=== PATIENT | male | born 1975 | race American Indian/Alaskan Native ===

== ENCOUNTER 2019-01-24 11:09 | Inpatient (IN) | payer OTHER ==
--- NOTE | 2019-01-24 11:33 | Emergency Department Report ---
Blank Doc - Documentation Documentation: 43 yo male with a hx of HTN non compliant with meds presents cc of CP left sided non radiating also complains of left thumb pain from over use, no injury basic labs, ekg, cxr
[2019-01-24] MEDS ORDERED: NITRO-BID 2% TP ONE (11:37)
[2019-01-24] MEDS ORDERED: ASPIRIN PO ONE (11:37)
[2019-01-24] MEDS ORDERED: NORMODYNE IV ONE (11:38)
--- NOTE | 2019-01-24 11:51 | Emergency Department Report ---
ED Chest Pain HPI - General Chief Complaint: Chest Pain Stated Complaint: BILATERAL THUMB PAIN/CHEST Time Seen by Provider: 01/24/19 11:19 Source: patient Mode of arrival: Ambulatory Limitations: No Limitations - History of Present Illness Initial Comments: Patient is a 43-year-old -[place] male who is presenting with chest pain. Patient states that the last 2-3 weeks she's had tightness in his chest has been constant. She is slightly worse with exertion. Patient also states she has some mild shortness of breath as well. He denies any cough cold congestion and fevers chills or sore throat. Patient admits to being noncompliant with antihypertensive meds and has not taken medicine several months. Patient denies any diaphoresis or nausea vomiting. Severity scale (0 -10): 8 - Related Data Home Medications Medication Instructions Recorded Confirmed Last Taken Lisinopril [Zestril TAB] 11/13/13 11/13/13 Unknown Pravastatin Sodium [Pravastatin] 11/13/13 11/13/13 Unknown Previous Rx's Medication Instructions Recorded Last Taken Type cephALEXin [Keflex] 500 mg PO TID #21 capsule 11/13/13 Unknown Rx HYDROcodone/ACETAMINOPHEN [[place] 1 each PO Q6HR PRN #20 tablet 09/06/14 Unknown Rx 5/325 Tablet] Ibuprofen [Motrin] 800 mg PO TID PRN #50 tablet 09/06/14 Unknown Rx Allergies Allergy/AdvReac Type Severity Reaction Status Date / Time No Known Allergies Allergy Verified 09/06/14 13:25 Heart Score - HEART Score History: Moderately suspicious EKG: Normal Age: < 45 Risk factors: 1-2 risk factors Troponin: < normal limit HEART Score: 2 ED Review of Systems ROS: Stated complaint: BILATERAL THUMB PAIN/CHEST Other details as noted in HPI Comment: All other systems reviewed and negative ED Past Medical Hx - Past Medical History Previous Medical History?: Yes Hx Hypertension: Yes Additional medical history: cholesterol - Surgical History Past Surgical History?: Yes Additional Surgical History: left leg surgery - Social History Smoking Status: Current Every Day Smoker Substance Use Type: Marijuana - Medications Home Medications: Home Medications Medication Instructions Recorded Confirmed Last Taken Type Lisinopril [Zestril TAB] 11/13/13 11/13/13 Unknown History Pravastatin Sodium [Pravastatin] 01/18/14 01/18/14 Unknown History cephALEXin [Keflex] 500 mg PO TID #21 capsule 11/13/13 Unknown Rx HYDROcodone/ACETAMINOPHEN [[place] 1 each PO Q6HR PRN #20 tablet 09/06/14 Unknown Rx 5/325 Tablet] Ibuprofen [Motrin] 800 mg PO TID PRN #50 tablet 09/06/14 Unknown Rx ED Physical Exam - General Limitations: No Limitations General appearance: alert, in no apparent distress - Head Head exam: Present: atraumatic, normocephalic - Eye Eye exam: Present: normal appearance, PERRL, EOMI - ENT ENT exam: Present: mucous membranes moist - Neck Neck exam: Present: normal inspection - Respiratory Respiratory exam: Present: normal lung sounds bilaterally. Absent: respiratory distress, wheezes, rales, rhonchi - Cardiovascular Cardiovascular Exam: Present: regular rate, normal rhythm. Absent: systolic murmur, diastolic murmur, rubs, gallop - GI/Abdominal GI/Abdominal exam: Present: soft, normal bowel sounds. Absent: distended, tenderness, guarding, rebound - Rectal Rectal exam: Present: deferred - Extremities Exam Extremities exam: Present: normal inspection - Back Exam Back exam: Present: normal inspection - Neurological Exam Neurological exam: Present: alert, oriented X3 - Psychiatric Psychiatric exam: Present: normal affect, normal mood - Skin Skin exam: Present: warm, dry, intact, normal color. Absent: rash ED Course Vital Signs 01/24/19 01/24/19 01/24/19 11:21 12:33 12:34 Temperature 97.8 F Pulse Rate 79 71 71 Respiratory 16 Rate Blood Pressure 223/109 192/113 192/113 Blood Pressure [Left] O2 Sat by Pulse 99 Oximetry 01/24/19 01/24/19 13:16 13:18 Temperature Pulse Rate 68 Respiratory 16 16 Rate Blood Pressure Blood Pressure 168/106 [Left] O2 Sat by Pulse 99 Oximetry LUH score - Luh Score Age > 65: (0) No Aspirin use within the Past 7 Days: (0) No 3 or more CAD Risk Factors: (0) No 2 or more Angina events in past 24 hrs: (1) Yes Known CAD with more than 50% Stenosis: (0) No Elevated Cardiac Markers: (0) No ST Deviation Greater than 0.5mm: (0) No LUH Score: 1 ED Medical Decision Making - Lab Data Result diagrams: 01/24/19 12:27 01/24/19 12:27 Lab Results 01/24/19 01/24/19 01/24/19 Range/Units 12:27 12:27 12:27 WBC 7.6 (4.5-11.0) K/mm3 RBC 4.75 (3.65-5.03) M/mm3 Hgb 14.4 (11.8-15.2) gm/dl Hct 42.7 (35.5-45.6) % MCV 90 (84-94) fl MCH 30 (28-32) pg MCHC 34 (32-34) % RDW 14.6 (13.2-15.2) % Plt Count 218 (140-440) K/mm3 Lymph % (Auto) 37.6 H (13.4-35.0) % [place] % (Auto) 6.0 (0.0-7.3) % Eos % (Auto) 0.8 (0.0-4.3) % Baso % (Auto) 0.3 (0.0-1.8) % Lymph # 2.9 (1.2-5.4) K/mm3 [place] # 0.5 (0.0-0.8) K/mm3 Eos # 0.1 (0.0-0.4) K/mm3 Baso # 0.0 (0.0-0.1) K/mm3 Seg Neutrophils % 55.3 (40.0-70.0) % Seg Neutrophils # 4.2 (1.8-7.7) K/mm3 PT (12.2-14.9) Sec. INR (0.87-1.13) APTT (24.2-36.6) Sec. Sodium 141 (137-145) mmol/L Potassium 4.1 (3.6-5.0) mmol/L Chloride 104.8 (98-107) mmol/L Carbon Dioxide 26 (22-30) mmol/L Anion Gap 14 mmol/L BUN 12 (9-20) mg/dL Creatinine 1.1 (0.8-1.5) mg/dL Estimated GFR > 60 ml/min BUN/Creatinine Ratio 11 % Glucose 101 H (75-100) mg/dL Calcium 9.2 (8.4-10.2) mg/dL Total Bilirubin 0.20 (0.1-1.2) mg/dL AST 17 (5-40) units/L ALT 25 (7-56) units/L Alkaline Phosphatase 52 (35-129) units/L Troponin T < 0.010 (0.00-0.029) ng/mL Total Protein 7.5 (6.3-8.2) g/dL Albumin 4.1 (3.9-5) g/dL Albumin/Globulin Ratio 1.2 % 01/24/19 Range/Units 12:27 WBC (4.5-11.0) K/mm3 RBC (3.65-5.03) M/mm3 Hgb (11.8-15.2) gm/dl Hct (35.5-45.6) % MCV (84-94) fl MCH (28-32) pg MCHC (32-34) % RDW (13.2-15.2) % Plt Count (140-440) K/mm3 Lymph % (Auto) (13.4-35.0) % [place] % (Auto) (0.0-7.3) % Eos % (Auto) (0.0-4.3) % Baso % (Auto) (0.0-1.8) % Lymph # (1.2-5.4) K/mm3 [place] # (0.0-0.8) K/mm3 Eos # (0.0-0.4) K/mm3 Baso # (0.0-0.1) K/mm3 Seg Neutrophils % (40.0-70.0) % Seg Neutrophils # (1.8-7.7) K/mm3 PT 11.7 L (12.2-14.9) Sec. INR 0.81 L (0.87-1.13) APTT 25.2 (24.2-36.6) Sec. Sodium (137-145) mmol/L Potassium (3.6-5.0) mmol/L Chloride (98-107) mmol/L Carbon Dioxide (22-30) mmol/L Anion Gap mmol/L BUN (9-20) mg/dL Creatinine (0.8-1.5) mg/dL Estimated GFR ml/min BUN/Creatinine Ratio % Glucose (75-100) mg/dL Calcium (8.4-10.2) mg/dL Total Bilirubin (0.1-1.2) mg/dL AST (5-40) units/L ALT (7-56) units/L Alkaline Phosphatase (35-129) units/L Troponin T (0.00-0.029) ng/mL Total Protein (6.3-8.2) g/dL Albumin (3.9-5) g/dL Albumin/Globulin Ratio % - EKG Data -: EKG Interpreted by Me - EKG Data 01/24/19 11:50 EKG shows sinus rhythm with a rate of 81, axis and intervals normal. There is no ST segment elevations or depressions present. Time of interpretation is 11:30 - Radiology Data interpreted by me: CXR WNL - Medical Decision Making Patient's blood pressure did respond to labetalol and nitro paste. Patient states he still continued to have some mild chest discomfort that he's states it is tightness in the chest. Patient does not appear to be in any distress at this time. Because of the elevated blood pressure and a continuous chest pain despite nitroglycerin and aspirin. Patient is to be admitted to the hospital for further evaluation. Critical Care Time: Yes (30) Critical care attestation.: If time is entered above; I have spent that time in minutes in the direct care of this critically ill patient, excluding procedure time. ED Disposition Clinical Impression: Hypertensive urgency, malignant Chest pain Qualifiers: Chest pain type: unspecified Qualified Code(s): R07.9 - Chest pain, unspecified Disposition: 09 OP ADMIT IP TO THIS HOSP Is pt being admited?: Yes Does the pt Need Aspirin: No Condition: Stable Instructions: Chest Pain (ED) Referrals: PRIMARY CARE, [Primary Care Provider] - 3-5 Days Time of Disposition: 13:40
[2019-01-24 12:50] LABS: Basophils % (Auto) 0.3 % (0.0-1.8); Eosinophils # (Auto) 0.1 K/mm3 (0.0-0.4); Eosinophils % (Auto) 0.8 % (0.0-4.3); Hematocrit 42.7 % (35.5-45.6); Hemoglobin 14.4 gm/dl (11.8-15.2); Lymphocytes # (Auto) 2.9 K/mm3 (1.2-5.4); Lymphocytes % (Auto) 37.6 % (13.4-35.0); Mean Corpuscular HGB Conc 34 % (32-34); Mean Corpuscular Volume 90 fl (84-94); Monocytes # (Auto) 0.5 K/mm3 (0.0-0.8); Platelet Count 218 K/mm3 (140-440); Red Blood Count 4.75 M/mm3 (3.65-5.03); Red Cell Distribution Width 14.6 % (13.2-15.2)
[2019-01-24 13:01] LABS: INR 0.81 (0.87-1.13)
[2019-01-24 13:02] LABS: Partial Thromboplastin Time 25.2 Sec. (24.2-36.6)
[2019-01-24 13:13] LABS: Alanine Aminotransferase 25 units/L (7-56); Albumin 4.1 g/dL (3.9-5); BUN/Creatinine Ratio 11; Blood Urea Nitrogen 12 mg/dL (9-20); Calcium 9.2 mg/dL (8.4-10.2); Hemolysis Index 3
--- NOTE | 2019-01-24 13:47 | XRay Report ---
PROCEDURE: XR CHEST ROUTINE 2V TECHNIQUE: Frontal and lateral views of the chest HISTORY: Chest Pain COMPARISONS: None. FINDINGS: The cardiomediastinal silhouette is normal in appearance. The lungs are clear without focal consolidation. No pleural effusion or pneumothorax. No acute bony or soft tissue abnormality. IMPRESSION: No acute cardiopulmonary disease. This document is electronically signed by Amber Dobbins MD., January 24 2019 01:44:53 PM ET
[2019-01-24] MEDS ORDERED: IBUPROFEN PO ONE (14:20)
[2019-01-24] MEDS ORDERED: IBUPROFEN PO PRN (20:20)
[2019-01-25] MEDS ORDERED: SODIUM CHLORIDE FLUSH SYRINGE 10 ML IV PRN (03:02)
[2019-01-25] MEDS ORDERED: ZOFRAN IV PRN (03:02)
[2019-01-25] MEDS ORDERED: TYLENOL PO PRN (03:02)
[2019-01-25] MEDS ORDERED: NORCO 5/325 PO PRN (03:02)
[2019-01-25] MEDS: MORPHINE IV PRN ×2 (05:55→12:08)
--- NOTE | 2019-01-25 06:29 | History and Physical Report ---
History of Present Illness Date of examination: 01/25/19 Date of admission: 01/24/19 13:41 Chief complaint: Chest pain for 2 weeks. History of present illness: 43-year-old -[place] male with pmh of HTN and HLD comes to ED for chest pain of 2 weeks duration.Intermittent in nature.Dull aching in character.5/10 in intensity.No diaphoresis.No radiation.No palpitations.Exacerbated by exertion.Relieved nbu rest.No recent travel.No fever or chills. Past Medical History Previous Medical History Hyppertension Hyperlipidemia Surgical History Past Surgical History?: Yes Additional Surgical History: left leg surgery Social History Smoking Status: Current Every Day Smoker Substance Use Type: Marijuana Family History Htn Medications Home Medications: Home Medications Medication Instructions Recorded Confirmed Last Taken Type Lisinopril [Zestril TAB] 11/13/13 11/13/13 Unknown History Pravastatin Sodium [Pravastatin] 11/13/13 11/13/13 Unknown History cephALEXin [Keflex] 500 mg PO TID #21 capsule 11/13/13 Unknown Rx HYDROcodone/ACETAMINOPHEN [[place] 1 each PO Q6HR PRN #20 tablet 09/06/14 Unknown Rx 5/325 Tablet] Ibuprofen [Motrin] 800 mg PO TID PRN #50 tablet 09/06/14 Unknown Rx Review of Systems ROS: Stated complaint: BILATERAL THUMB PAIN/CHEST Other details as noted in HPI Comment: All other systems reviewed and negative Medications and Allergies Allergies Allergy/AdvReac Type Severity Reaction Status Date / Time No Known Allergies Allergy Verified 09/06/14 13:25 Home Medications Medication Instructions Recorded Confirmed Last Taken Type Lisinopril [Zestril TAB] 5 mg PO DAILY 11/13/13 01/24/19 Unknown History Pravastatin Sodium [Pravastatin] 40 mg PO DAILY 11/13/13 01/24/19 Unknown History cephALEXin [Keflex] 500 mg PO TID #21 capsule 11/13/13 01/24/19 Unknown Rx HYDROcodone/ACETAMINOPHEN [[place] 1 each PO Q6HR PRN #20 tablet 09/06/14 01/24/19 Unknown Rx 5/325 Tablet] Ibuprofen [Motrin] 800 mg PO TID PRN #50 tablet 09/06/14 01/24/19 Unknown Rx Active Meds: Active Medications Acetaminophen (Tylenol) 650 mg PO Q4H PRN PRN Reason: Pain MILD(1-3)/Fever >100.5/GARCIA Acetaminophen/Hydrocodone Bitart ([place] 5/325) 2 each PO Q6H PRN PRN Reason: Pain, Moderate (4-6) Amlodipine Besylate (Norvasc) 10 mg PO QDAY YUNG Famotidine (Pepcid) 10 mg PO BID YUNG Ibuprofen (Motrin) 400 mg PO Q6H PRN PRN Reason: Pain, Mild (1-3) Last Admin: 01/24/19 20:45 Dose: 400 mg Documented by: Morphine Sulfate (Morphine) 2 mg IV Q4H PRN PRN Reason: Pain, Moderate (4-6) Last Admin: 01/25/19 05:55 Dose: 2 mg Documented by: Ondansetron HCl (Zofran) 4 mg IV Q8H PRN PRN Reason: Nausea And Vomiting Sodium Chloride (Sodium Chloride Flush Syringe 10 Ml) 10 ml IV BID YUNG Sodium Chloride (Sodium Chloride Flush Syringe 10 Ml) 10 ml IV PRN PRN PRN Reason: LINE FLUSH Exam - Constitutional Vitals: Temp Pulse Resp BP Pulse Ox 98.5 F 69 24 159/96 93 01/25/19 05:22 01/25/19 05:22 01/25/19 05:22 01/25/19 05:22 01/25/19 05:22 General appearance: Present: no acute distress, well-nourished - EENT Eyes: Present: PERRL ENT: hearing intact, clear oral mucosa - Neck Neck: Present: supple, normal ROM - Respiratory Respiratory effort: normal Respiratory: bilateral: CTA - Cardiovascular Heart rate: 78 Rhythm: regular Heart Sounds: Present: S1 & S2. Absent: rub, click - Extremities Extremities: no ischemia, pulses intact, pulses symmetrical, No edema Peripheral Pulses: within normal limits - Abdominal General gastrointestinal: Present: soft, non-tender, non-distended, normal bowel sounds Male genitourinary: Present: normal - Rectal Rectal Exam: deferred - Integumentary Integumentary: Present: clear, warm, dry - Musculoskeletal Musculoskeletal: gait normal, strength equal bilaterally - Psychiatric Psychiatric: appropriate mood/affect, intact judgment & insight - Neurologic Neurologic: CNII-XII intact, moves all extremities - Allied Health Allied health notes reviewed: nursing, case management Results - Labs CBC & Chem 7: 01/24/19 12:27 01/24/19 12:27 Labs: Laboratory Last Values WBC 7.6 K/mm3 (4.5-11.0) 01/24/19 12: RBC 4.75 M/mm3 (3.65-5.03) 01/24/19 12:27 Hgb 14.4 gm/dl (11.8-15.2) 01/24/19 12:27 Hct 42.7 % (35.5-45.6) 01/24/19 12:27 MCV 90 fl (84-94) 01/24/19 12: MCH 30 pg (28-32) 01/24/19 12: MCHC 34 % (32-34) 01/24/19 12: RDW 14.6 % (13.2-15.2) 01/24/19 12: Plt Count 218 K/mm3 (140-440) 01/24/19 12: Lymph % (Auto) 37.6 % (13.4-35.0) H 01/24/19 12:27 [place] % (Auto) 6.0 % (0.0-7.3) 01/24/19 12: Eos % (Auto) 0.8 % (0.0-4.3) 01/24/19 12: Baso % (Auto) 0.3 % (0.0-1.8) 01/24/19 12: Lymph # 2.9 K/mm3 (1.2-5.4) 01/24/19 12: [place] # 0.5 K/mm3 (0.0-0.8) 01/24/19 12:27 Eos # 0.1 K/mm3 (0.0-0.4) 01/24/19 12: Baso # 0.0 K/mm3 (0.0-0.1) 01/24/19 12:27 Seg Neutrophils % 55.3 % (40.0-70.0) 01/24/19 12: Seg Neutrophils # 4.2 K/mm3 (1.8-7.7) 01/24/19 12:27 PT 11.7 Sec. (12.2-14.9) L 01/24/19 12:27 INR 0.81 (0.87-1.13) L 01/24/19 12:27 APTT 25.2 Sec. (24.2-36.6) 01/24/19 12:27 Sodium 141 mmol/L (137-145) 01/24/19 12:27 Potassium 4.1 mmol/L (3.6-5.0) 01/24/19 12:27 Chloride 104.8 mmol/L (98-107) 01/24/19 12:27 Carbon Dioxide 26 mmol/L (22-30) 01/24/19 12:27 Anion Gap 14 mmol/L 01/24/19 12:27 BUN 12 mg/dL (9-20) 01/24/19 12:27 Creatinine 1.1 mg/dL (0.8-1.5) 01/24/19 12:27 Estimated GFR > 60 ml/min 01/24/19 12:27 BUN/Creatinine Ratio 11 % 01/24/19 12:27 Glucose 101 mg/dL (75-100) H 01/24/19 12:27 Calcium 9.2 mg/dL (8.4-10.2) 01/24/19 12:27 Total Bilirubin 0.20 mg/dL (0.1-1.2) 01/24/19 12:27 AST 17 units/L (5-40) 01/24/19 12:27 ALT 25 units/L (7-56) 01/24/19 12:27 Alkaline Phosphatase 52 units/L (35-129) 01/24/19 12:27 Troponin T < 0.010 ng/mL (0.00-0.029) 01/24/19 16:16 Total Protein 7.5 g/dL (6.3-8.2) 01/24/19 12:27 Albumin 4.1 g/dL (3.9-5) 01/24/19 12:27 Albumin/Globulin Ratio 1.2 % 01/24/19 12:27 - Imaging and Cardiology EKG: report reviewed Chest x-ray: report reviewed (NAF) Imaging and Cardiology: EKG NSR 80/min No acute ST T wave changes Assessment and Plan Advance Directives: Yes (Full code) VTE prophylaxis?: Chemical Plan of care discussed with patient/family: Yes - Patient Problems (1) Chest pain Current Visit: Yes Status: Acute Qualifiers: Chest pain type: unspecified Qualified Code(s): R07.9 - Chest pain, unspecified Plan to address problem: Chest pain protocol Serial Toponins Lexiscan in AM Costochondritis and GERD in Differential diagnosis (2) Hypertensive emergency Current Visit: Yes Status: Acute Plan to address problem: Initiated on Losartan and Amlodipine Noncompliant Counselled IV Hydraazine PRN (3) Arthritis Current Visit: No Status: Chronic Plan to address problem: NSAIDS prn (4) HLD (hyperlipidemia) Current Visit: Yes Status: Chronic Qualifiers: Hyperlipidemia type: mixed hyperlipidemia Qualified Code(s): E78.2 - Mixed hyperlipidemia Plan to address problem: Statins ordered (5) DVT prophylaxis Current Visit: Yes Status: Acute Plan to address problem: On Lovenox and GI prophylaxis
[2019-01-25] MEDS ORDERED: COZAAR PO SCH (06:37)
[2019-01-25] MEDS ORDERED: HABITROL TD SCH (08:00)
[2019-01-25] MEDS ORDERED: NORVASC PO SCH (10:00)
[2019-01-25] MEDS ORDERED: SODIUM CHLORIDE FLUSH SYRINGE 10 ML IV SCH (10:00)
[2019-01-25] MEDS ORDERED: PEPCID PO SCH (10:00)
[2019-01-25] MEDS ORDERED: LEXISCAN IV ONE ×2 (10:06→10:07)
--- NOTE | 2019-01-25 13:51 | Discharge Summary ---
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 His main complaint is bilateral thumb pains and wants cortisone injection, which had before at [facility]. -Chest pains, atypical, msk in nature -Tobacco dependency: counselor/art therapist on stopping -Bilateral thumb pains with severe callous bilateral palms, suspect Carpal tunnel: Referral to outpt Ortho. -Hypertension: counselor/art therapist on compliance -Dyslipidemia: lifestyle modifications stress Disposition: TO HOME OR SELFCARE Time spent for discharge: 32 minutes Core Measure Documentation - Palliative Care Palliative Care/ Comfort Measures: Not Applicable - Core Measures Any of the following diagnoses?: none - VTE Discharge Requirements Deep Vein Thrombosis/Pulmonary Embolism Present on Admission: No Has pt received <5 days of overlap therapy or INR<2.0: No Anticoagulant overlap therapy prescribed at discharge: No Contraindication No Overlap Therapy order at DC: Not Indicated Exam - Physical Exam Narrative exam: Gen: WDWN, NAD, Awake, Alert, Orientated HEENT: NCAT, EOMI, PERRL, OP Clear Neck: supple, no adenopathy, no thyromegaly, no JVD CVS/Heart: RRR, normal S1S2, pulses present bilaterally Chest/Lungs: CTA B, Symmetrical chest expansion, good air entry bilaterally, reproducible cw tenderness GI/Abdomen: soft, NTND, good bowel sounds, no guarding or rebound /Bladder: no suprapubic tenderness, no CVA or paraspinal tenderness Extermity/Skin: no c/c/e, severe callus and overuse signs of palms and hands bilateral MSK: FROM x 4 Neuro: CN 2-12 grossly intact, no new focal deficits Psych: calm - Constitutional Vitals: Temp Pulse Resp BP Pulse Ox 99.1 F 73 18 165/90 98 01/25/19 12:21 01/25/19 13:33 01/25/19 12:21 01/25/19 13:33 01/25/19 12:21 Plan Activity: other (no strenous activity unless cleared by pcp) Diet: low salt Special Instructions: record daily BP diary Follow up with: PRIMARY CARE, [Referring] - 3-5 Days CASS KINSEY MD [Staff Physician] - 7 Days ERNA CHENG MD [Staff Physician] - 7 Days Prescriptions: Nicotine [Habitrol] 21 mg TD QDAY #14 patch Ibuprofen [Motrin 400 MG tab] 400 mg PO Q6H PRN #4 tablet PRN Reason: Pain, Mild (1-3) amLODIPine [Norvasc] 10 mg PO QDAY #30 tablet Pravastatin Sodium [Pravastatin] 40 mg PO DAILY #15 tablet Lisinopril [Zestril TAB] 5 mg PO DAILY #30 tablet
[2019-01-25 16:24] VITALS: BP 149/87
--- NOTE | 2019-01-26 00:18 | Treadmill Report ---
THALLIUM STRESS TEST REPORT LEFT VENTRICLE: Left ventricle appears moderately dilated. Perfusion study demonstrates fairly homogeneous uptake of the tracer in all segments, with mild diaphragmatic attenuation artifact. Gated analysis demonstrates at least mild left ventricular systolic dysfunction with ejection fraction calculated at 48%. CONCLUSION: Evidence of mild dilated cardiomyopathy with mild left ventricular systolic dysfunction, ejection fraction of 48%. Perfusion study shows a normal perfusion, suggesting a mild nonischemic cardiomyopathy, clinical correlation is recommended. [facility]# [id number] [place]/NTS
== END 2019-01-25 17:30 | disposition home or self-care (01) | DRG 305 ==
LOC: ED 11:09 → 3A 13:41
PROVIDERS: ADMIT Internal Medicine; ATTEND Internal Medicine
DX: I16.1 Hypertensive emergency (principal); I16.0 Hypertensive urgency; I10 Essential (primary) hypertension; E78.00 Pure hypercholesterolemia, unspecified; F12.90 Cannabis use, unspecified, uncomplicated; G56.03 Carpal tunnel syndrome, bilateral upper limbs; R07.89 Other chest pain; M19.90 Unspecified osteoarthritis, unspecified site; E78.2 Mixed hyperlipidemia; F17.200 Nicotine dependence, unspecified, uncomplicated; Z91.14 Patient's other noncompliance with medication regimen; Z82.49 Family history of ischemic heart disease and other diseases of the circulatory system; Z79.899 Other long term (current) drug therapy; Z71.89 Other specified counseling; Z71.6 Tobacco abuse counseling
CPT/HCPCS: 36415; 71046; 78452; 80053; 84484; 85025; 85610; 85730; 93005; 93010; 93017; 96374; 99406; G0378; A9502; J2270; J2785

== ENCOUNTER 2019-10-22 08:46 | Emergency (ER) | payer SELFPAY ==
[2019-10-22] MEDS ORDERED: cloNIDine 0.2 MG TAB PO ONE (08:57)
[2019-10-22] MEDS ORDERED: cloNIDine 0.2 MG TAB ONE (08:59)
[2019-10-22 09:17] VITALS: BP 184/114
[2019-10-22 09:49] LABS: Hematocrit 44.5 % (35.5-45.6); Hemoglobin 14.7 gm/dl (11.8-15.2); Mean Corpuscular HGB Conc 33 % (32-34); Mean Corpuscular Volume 91 fl (84-94); Platelet Count 202 K/mm3 (140-440); Red Blood Count 4.89 M/mm3 (3.65-5.03); Red Cell Distribution Width 13.8 % (13.2-15.2)
[2019-10-22 09:58] LABS: Bilirubin,Urine NEG (Negative); Blood,Urine NEG (Negative); Color,Urine Yellow (Yellow); Mucus,Urine FEW /HPF; Protein,Urine <15 mg/dL mg/dL (Negative); Urobilinogen,Urine < 2.0 mg/dL (<2.0)
[2019-10-22 10:10] LABS: Alanine Aminotransferase 33 units/L (7-56); Albumin 4.1 g/dL (3.9-5); BUN/Creatinine Ratio 13; Blood Urea Nitrogen 16 mg/dL (9-20); Calcium 9.4 mg/dL (8.4-10.2); Hemolysis Index 10
[2019-10-22 11:14] LABS: Basophils % (Manual) 0 % (0.0-1.8); Platelet Estimate Consistent w Auto; RBC Morphology Normal; Total Cells Counted 100
--- NOTE | 2019-10-22 11:55 | Emergency Department Report ---
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 The pain is worse with deep breath, coughing, range of motion when lifting pushing or pulling. Reports no hemoptysis, hematemesis or hematochezia. No fever, chills, sweats no wheezing. Severity scale (0 -10): 2 Quality: dull Consistency: constant Improves with: none Worsens with: none Associated Symptoms: denies: confusion, chest pain, cough, diaphoresis, loss of appetite, syncope, weakness Treatments Prior to Arrival: none - Related Data Previous Rx's Medication Instructions Recorded Last Taken Type Acetaminophen [Acetaminophen TAB] 650 mg PO Q4H PRN #15 tablet 01/25/19 Unknown Rx Famotidine [Pepcid] 10 mg PO BID #15 tablet 01/25/19 Unknown Rx Ibuprofen [Motrin 400 MG tab] 400 mg PO Q6H PRN #4 tablet 01/25/19 Unknown Rx Nicotine [Habitrol] 21 mg TD QDAY #14 patch 01/25/19 Unknown Rx Pravastatin Sodium [Pravastatin] 40 mg PO DAILY #15 tablet 01/25/19 Unknown Rx amLODIPine 10 mg PO QDAY #30 tablet 01/25/19 Unknown Rx lisinopriL [Zestril TAB] 5 mg PO DAILY #30 tablet 01/25/19 Unknown Rx Ketorolac [Toradol] 10 mg PO Q6H PRN #15 tablet 10/22/19 Unknown Rx Ketorolac [Toradol] 10 mg PO Q6H PRN #15 tablet 10/22/19 Unknown Rx Allergies Allergy/AdvReac Type Severity Reaction Status Date / Time No Known Allergies Allergy Verified 09/06/14 13:25 ED Review of Systems ROS: Stated complaint: LT SIDE PAIN Other details as noted in HPI Comment: All other systems reviewed and negative ED Past Medical Hx - Past Medical History Previous Medical History?: Yes Hx Hypertension: Yes Additional medical history: cholesterol - Surgical History Past Surgical History?: Yes Additional Surgical History: left leg surgery - Social History Smoking Status: Never Smoker Substance Use Type: None - Medications Home Medications: Home Medications Medication Instructions Recorded Confirmed Last Taken Type Acetaminophen [Acetaminophen TAB] 650 mg PO Q4H PRN #15 tablet 01/25/19 Unknown Rx Famotidine [Pepcid] 10 mg PO BID #15 tablet 01/25/19 Unknown Rx Ibuprofen [Motrin 400 MG tab] 400 mg PO Q6H PRN #4 tablet 01/25/19 Unknown Rx Nicotine [Habitrol] 21 mg TD QDAY #14 patch 01/25/19 Unknown Rx Pravastatin Sodium [Pravastatin] 40 mg PO DAILY #15 tablet 01/25/19 Unknown Rx amLODIPine 10 mg PO QDAY #30 tablet 01/25/19 Unknown Rx lisinopriL [Zestril TAB] 5 mg PO DAILY #30 tablet 01/25/19 Unknown Rx Ketorolac [Toradol] 10 mg PO Q6H PRN #15 tablet 10/22/19 Unknown Rx Ketorolac [Toradol] 10 mg PO Q6H PRN #15 tablet 10/22/19 Unknown Rx ED Physical Exam - General Limitations: No Limitations General appearance: alert, in no apparent distress - Head Head exam: Present: atraumatic, normocephalic - Eye Eye exam: Present: normal appearance, PERRL, EOMI - ENT ENT exam: Present: normal exam, mucous membranes moist, TM's normal bilaterally - Neck Neck exam: Present: normal inspection, full ROM - Respiratory Respiratory exam: Present: normal lung sounds bilaterally, chest wall tenderness. Absent: respiratory distress, wheezes, rales, accessory muscle use - Cardiovascular Cardiovascular Exam: Present: regular rate, normal rhythm. Absent: systolic murmur, diastolic murmur, rubs, gallop - GI/Abdominal GI/Abdominal exam: Present: soft, normal bowel sounds. Absent: tenderness, guarding, hyperactive bowel sounds, hypoactive bowel sounds - Rectal Rectal exam: Present: deferred - exam: Present: normal inspection - Extremities Exam Extremities exam: Present: normal inspection, normal capillary refill - Back Exam Back exam: Present: normal inspection. Absent: CVA tenderness (R), CVA tenderness (L) - Neurological Exam Neurological exam: Present: alert, oriented X3 - Psychiatric Psychiatric exam: Present: normal affect, normal mood - Skin Skin exam: Present: warm, dry, intact, normal color. Absent: rash ED Course Vital Signs 10/22/19 10/22/19 08:51 09:17 Temperature 98.1 F Pulse Rate 82 86 Respiratory 18 Rate Blood Pressure 181/102 184/114 Blood Pressure 181/102 [Right] O2 Sat by Pulse 96 Oximetry ED Medical Decision Making - Lab Data Result diagrams: 10/22/19 09:08 10/22/19 09:08 Critical care attestation.: If time is entered above; I have spent that time in minutes in the direct care of this critically ill patient, excluding procedure time. ED Disposition Clinical Impression: Musculoskeletal chest pain Disposition: DC-01 TO HOME OR SELFCARE Is pt being admited?: No Does the pt Need Aspirin: No Condition: Stable Instructions: Chest Pain (ED), Costochondritis (ED) Prescriptions: Ketorolac [Toradol] 10 mg PO Q6H PRN #15 tablet PRN Reason: Pain Referrals: CASS KINSEY MD [Staff Physician] - 3-5 Days
--- NOTE | 2019-10-22 12:14 | XRay Report ---
CHEST PA AND LATERAL VIEWS INDICATION: left side chest and back pain. COMPARISON: 03/26/2019 FINDINGS: Support devices: None Heart: Normal and unchanged Lungs/Pleura: No acute pulmonary or pleural findings. IMPRESSION: 1. No active disease and no interval change. Signer Name: Chico Kinsey MD Signed: 10/22/2019 12:09 PM Workstation Name: [id number]
== END 2019-10-22 14:13 | disposition home or self-care (01) ==
LOC: ED 08:46
DX: R07.9 Chest pain, unspecified (principal); R10.9 Unspecified abdominal pain
CPT/HCPCS: 36415; 71046; 80053; 81001; 85007; 85025; 99284

== ENCOUNTER 2020-03-03 21:03 | Emergency (ER) | payer OTHER ==
[2020-03-03] MEDS ORDERED: SULFAMETHOXAZOLE/TRIMETHOPRIM 800/160MG DS TAB PO ONE (22:39)
[2020-03-03] MEDS ORDERED: IBUPROFEN 800 MG TAB PO ONE (22:39)
[2020-03-03] MEDS ORDERED: CLINDAMYCIN 300 MG CAP PO ONE (22:39)
[2020-03-03] MEDS ORDERED: ONDANSETRON 4 MG ODT TAB PO ONE (22:40)
--- NOTE | 2020-03-03 23:22 | Emergency Department Report ---
ED Extremity Problem HPI - General Chief complaint: Extremity Problem,Nontraumatic Stated complaint: SOB,KNOT ON THIGH Source: patient Mode of arrival: Ambulatory Limitations: No Limitations - History of Present Illness Initial comments: Patient is a 44-year-old -[place] male with a history of hypertension who presents to the ED with complaint of acute onset persistent painful swollen erythematous maculopapular rash on the right medial thigh and groin with purulent discharge for the last 1 week, worse in the last 2 days. Patient states that the purulent discharge began about 24 hours ago and has been intermittent. Patient states that the pain is worse with any ambulation or palpation of the area. Patient denies testicular pain, penile pain, penile discharge, dysuria, urinary frequency and urgency, fever, chills, cough, nausea and vomiting, diarrhea or abdominal pain, traumatic injury or back pain. MD Complaint: extremity pain (Right medial thigh painful rash) -: Sudden, week(s) (1) Location: right, lower extremity (medial right thigh and groin) History of Same: No -: Yes myalgia Radiation: proximal Severity scale (0 -10): 5 Quality: aching, sharp Consistency: constant Improves with: nothing Worsens with: weight bearing, palpation Associated Symptoms: denies other symptoms, myalgias, rash (Swollen erythematous maculopapular rash with purulent discharge in right medial thigh). denies: chest pain, shortness of breath, fever, arthralgias - Related Data Previous Rx's Medication Instructions Recorded Last Taken Type Acetaminophen [Acetaminophen TAB] 650 mg PO Q4H PRN #15 tablet 01/25/19 Unknown Rx Famotidine [Pepcid] 10 mg PO BID #15 tablet 01/25/19 Unknown Rx Ibuprofen [Motrin 400 MG tab] 400 mg PO Q6H PRN #4 tablet 01/25/19 Unknown Rx Nicotine [Habitrol] 21 mg TD QDAY #14 patch 01/25/19 Unknown Rx Pravastatin Sodium [Pravastatin] 40 mg PO DAILY #15 tablet 01/25/19 Unknown Rx amLODIPine 10 mg PO QDAY #30 tablet 01/25/19 Unknown Rx lisinopriL [Zestril TAB] 5 mg PO DAILY #30 tablet 01/25/19 Unknown Rx Ketorolac [Toradol] 10 mg PO Q6H PRN #15 tablet 10/22/19 Unknown Rx Ketorolac [Toradol] 10 mg PO Q6H PRN #15 tablet 10/22/19 Unknown Rx Ibuprofen [Motrin] 800 mg PO Q8HR PRN #30 tablet 03/03/20 Unknown Rx Sulfamethoxazole/Trimethoprim 1 each PO Q12H #20 tablet 03/03/20 Unknown Rx [Bactrim DS TAB] Terbinafine HCl [LamiSIL] 250 mg PO DAILY #14 tablet 03/03/20 Unknown Rx Allergies Allergy/AdvReac Type Severity Reaction Status Date / Time No Known Allergies Allergy Verified 09/06/14 13:25 ED Review of Systems ROS: Stated complaint: SOB,KNOT ON THIGH Other details as noted in HPI Constitutional: denies: chills, fever Eyes: denies: eye pain, eye discharge, vision change ENT: denies: ear pain, throat pain Respiratory: denies: cough, shortness of breath, wheezing Cardiovascular: denies: chest pain, palpitations Endocrine: no symptoms reported Gastrointestinal: denies: abdominal pain, nausea, diarrhea Genitourinary: denies: urgency, dysuria Musculoskeletal: denies: back pain, joint swelling, arthralgia Skin: rash (Erythematous maculopapular rash on right inguinal area and right upper thigh with purulent discharge), other (Swollen erythematous maculopapular rash on right upper thigh and groin with discharge). denies: lesions Neurological: denies: headache, weakness, paresthesias Psychiatric: denies: anxiety, depression Hematological/Lymphatic: denies: easy bleeding, easy bruising ED Past Medical Hx - Past Medical History Hx Hypertension: Yes Additional medical history: cholesterol - Surgical History Additional Surgical History: left leg surgery, hpv - Social History Smoking Status: Current Every Day Smoker - Medications Home Medications: Home Medications Medication Instructions Recorded Confirmed Last Taken Type Acetaminophen [Acetaminophen TAB] 650 mg PO Q4H PRN #15 tablet 01/25/19 Unknown Rx Famotidine [Pepcid] 10 mg PO BID #15 tablet 01/25/19 Unknown Rx Ibuprofen [Motrin 400 MG tab] 400 mg PO Q6H PRN #4 tablet 01/25/19 Unknown Rx Nicotine [Habitrol] 21 mg TD QDAY #14 patch 01/25/19 Unknown Rx Pravastatin Sodium [Pravastatin] 40 mg PO DAILY #15 tablet 01/25/19 Unknown Rx amLODIPine 10 mg PO QDAY #30 tablet 01/25/19 Unknown Rx lisinopriL [Zestril TAB] 5 mg PO DAILY #30 tablet 01/25/19 Unknown Rx Ketorolac [Toradol] 10 mg PO Q6H PRN #15 tablet 10/22/19 Unknown Rx Ketorolac [Toradol] 10 mg PO Q6H PRN #15 tablet 10/22/19 Unknown Rx Ibuprofen [Motrin] 800 mg PO Q8HR PRN #30 tablet 03/03/20 Unknown Rx Sulfamethoxazole/Trimethoprim 1 each PO Q12H #20 tablet 03/03/20 Unknown Rx [Bactrim DS TAB] Terbinafine HCl [LamiSIL] 250 mg PO DAILY #14 tablet 03/03/20 Unknown Rx ED Physical Exam - General Limitations: No Limitations General appearance: alert, in no apparent distress - Head Head exam: Present: atraumatic, normocephalic, normal inspection - Eye Eye exam: Present: normal appearance, PERRL, EOMI Pupils: Present: normal accommodation - ENT ENT exam: Present: normal exam, normal orophraynx, mucous membranes moist, TM's normal bilaterally, normal external ear exam - Neck Neck exam: Present: normal inspection, full ROM - Respiratory Respiratory exam: Present: normal lung sounds bilaterally. Absent: respiratory distress, wheezes, rales, rhonchi, chest wall tenderness, accessory muscle use - Cardiovascular Cardiovascular Exam: Present: regular rate, normal rhythm, normal heart sounds. Absent: systolic murmur, diastolic murmur, rubs, gallop - GI/Abdominal GI/Abdominal exam: Present: soft, normal bowel sounds. Absent: tenderness, guarding, hyperactive bowel sounds, hypoactive bowel sounds - exam: Present: normal inspection External exam: Present: normal external exam - Extremities Exam Extremities exam: Present: normal inspection, full ROM, normal capillary refill. Absent: tenderness, pedal edema, joint swelling - Back Exam Back exam: Present: normal inspection, full ROM. Absent: tenderness, muscle spasm, paraspinal tenderness, vertebral tenderness - Neurological Exam Neurological exam: Present: alert, oriented X3, CN II-XII intact, normal gait, reflexes normal - Psychiatric Psychiatric exam: Present: normal affect, normal mood - Skin Skin exam: Present: warm, dry, intact, normal color, rash (Swollen erythematous tender maculopapular nonfluctuant rash on right inguinal area and right upper thigh with purulent discharge) ED Medical Decision Making - Medical Decision Making This is a 44-year-old -[place] male with a history of hypertension who presents to the ED with complaint of acute onset persistent painful swollen erythematous maculopapular rash on the right medial thigh and groin with purulent discharge for the last 1 week, worse in the last 2 days. Patient states that the purulent discharge began about 24 hours ago and has been intermittent. Patient states that the pain is worse with any ambulation or palpation of the area. In the ED, patient is alert and oriented x3 and is not in distress but hypertensive in triage. Patient stated that he had not taken his blood pressure medication. Patient was advised to take his blood pressure medication when he gets home. Patient was treated for pain and also given initial oral antibiotics in the ED. Patient was discharged home on pain medication and antibiotics and advised to follow-up with his primary care physician in 5 to 7 days for reevaluation. Patient was advised to return to the ED immediately if symptoms get worse. - Differential Diagnosis Cellulitis; Folliculitis; Tinea cruris Critical care attestation.: If time is entered above; I have spent that time in minutes in the direct care of this critically ill patient, excluding procedure time. ED Disposition Clinical Impression: Acute folliculitis, Cellulitis of right groin, Tinea cruris Disposition: DC- TO HOME OR SELFCARE Is pt being admited?: No Does the pt Need Aspirin: No Condition: Stable Instructions: Cellulitis (ED), Folliculitis (ED), Jock Itch (ED) Additional Instructions: Take medication with food, drink plenty of fluids and follow-up with your primary care physician in 7 to 10 days for reevaluation. Return to the ED immediately if symptoms get worse. Prescriptions: Sulfamethoxazole/Trimethoprim [Bactrim DS TAB] 1 each PO Q12H #20 tablet Terbinafine HCl [LamiSIL] 250 mg PO DAILY #14 tablet Ibuprofen [Motrin] 800 mg PO Q8HR PRN #30 tablet PRN Reason: Pain , Severe (7-10) Referrals: [facility] [Provider Group] - 3-5 Days Time of Disposition: 23:20 Print Language: YI
== END 2020-03-04 00:06 | disposition home or self-care (01) ==
LOC: ED 21:03
DX: L03.311 Cellulitis of abdominal wall (principal); L73.8 Other specified follicular disorders; B35.6 Tinea cruris; I10 Essential (primary) hypertension; E78.00 Pure hypercholesterolemia, unspecified; F17.200 Nicotine dependence, unspecified, uncomplicated; Z98.890 Other specified postprocedural states; Z79.899 Other long term (current) drug therapy
CPT/HCPCS: 99282; Q0162